=== PATIENT | male | born 1975 | race African-American/Black ===

== ENCOUNTER 2019-08-23 23:46 | Emergency (ER) | payer OTHER ==
[~2019-08-23] VITALS: Ht 170.2 cm; Wt 90.7 kg
--- NOTE | 2019-08-24 00:19 | Emergency Room Report ---
History of Present Illness General Chief Complaint: General Complaint Source: Patient Present Illness HPI This a 44-year-old male with no past history. He said he does have a history of anxiety. He get it intermittently. He woke up this morning feeling short of breath and but better now. Even though he is asymptomatic now his girlfriend home to come in. Denies any fever chills but denies any nausea vomiting. When he gets anxiety he felt short of breath and palpitation. Only lasted for a few minutes. Is been getting more frequently now. Denies any other complaint. He is asymptomatic right now. COVID-19 risk:Contact w/high r: No COVID-19 risk:Travel to affect: No Has patient experienced rayo: No Allergies: Coded Allergies: No Known Allergies (Unverified , 08/23/19) Patient History Past Medical History: see triage record, old chart reviewed Past Surgical History: none Pertinent Family History: none Social History: Denies: smoking Immunizations: other Reviewed Nursing Documentation: PMH: Agreed; PSxH: Agreed Nursing Documentation-PMH Past Medical History: No History, Except For Review of Systems Eye: Denies: eye pain, blurred vision ENT: Denies: ear pain, nose congestion, throat swelling Respiratory: Denies: cough, shortness of breath Cardiovascular: Denies: chest pain, palpitations Gastrointestinal: Denies: abdominal pain, diarrhea, nausea, vomiting Musculoskeletal: Denies: back pain, joint pain Skin: Denies: rash Neurological: Denies: headache, numbness Endocrine: Denies: increased thirst, increased urine Hematologic/Lymphatic: Denies: easy bruising All Other Systems: negative except mentioned in HPI Physical Exam Vital Signs Date Time Temp Pulse Resp B/P (MAP) Pulse Ox O2 Delivery O2 Flow Rate FiO2 08/23/19 23:50 98.1 102 18 210/127 (154) 96 Room Air Vitals with high blood pressure. Sp02 EP Interpretation: reviewed, normal General Appearance: well appearing, no apparent distress, alert Head: normocephalic, atraumatic Eyes: bilateral eye PERRL, bilateral eye EOMI ENT: hearing grossly normal, normal pharynx Neck: full range of motion, supple, no meningismus Respiratory: chest non-tender, lungs clear, normal breath sounds Cardiovascular #1: regular rate, rhythm, no murmur Gastrointestinal: normal bowel sounds, non tender, no mass, no organomegaly, no bruit, non-distended Musculoskeletal: back normal, normal range of motion, gait/station normal Psychiatric: mood/affect normal Medical Decision Making Diagnostic Impression: Primary Impression: Anxiety Additional Impression: Hypertension Qualified Codes: I10 - Essential (primary) hypertension ER Course Patient presents with a reported anxiety. This may be secondary to drug- induced or psychiatric in nature. He is calm now. Her blood pressure is very high. He said he usually get high blood pressure when he has anxiety. I point out the fact that he is calm now and does not complain of anxiety and repeat blood pressure still elevated. Because of that, I wanted to do blood work and urinalysis to check for endorgan damage. Also wanted to check to see if he has any substance abuse that can cause elevation his blood pressure. Patient said that he does not want blood work done. He said he can come back later. Explained to the patient that his blood pressure is very high and that he needs treatment. He need to check to see if he has any damage to his kidneys or spilling proteins in his urine. I will give him a dose of medication here and discharge him on medication. Advised the patient to get work-up with his primary care doctor. He is competent to refuse treatment. Last Vital Signs Date Time Temp Pulse Resp B/P (MAP) Pulse Ox O2 Delivery O2 Flow Rate FiO2 08/23/19 23:50 98.1 102 18 210/127 (154) 96 Room Air Status: improved Disposition: HOME, SELF-CARE Condition: Stable Scripts Amlodipine Besylate (Norvasc) 10 Mg Tablet 10 MG ORAL DAILY, #30 TAB Prov: Carlos Chase MD 08/24/19 Additional Instructions: Your blood pressure is ajy high here. This is more than just anxiety related. You refused any work-up to check to see if there is any organ damage. Take your blood pressure medication. Follow-up with your doctor within a week for blood testing. Return if symptoms worsen. Carlos Chase MD Aug 24, 2019 00:19
[2019-08-24] MEDS ORDERED: NORVASC10 MG ORAL (00:29)
[2019-08-24 00:50] VITALS: BP 210/127
== END 2019-08-24 00:50 | disposition home or self-care (01) ==
LOC: EMR 08-24 00:33
DX: F41.9 Anxiety disorder, unspecified (principal); I10 Essential (primary) hypertension
CPT/HCPCS: 99282